=== PATIENT | female | born 1965 | race Two or more races ===

== ENCOUNTER → 2023-03-15 | Emergency (ER) | payer OTHER ==
[~2023-03-15] VITALS: Ht 160 cm; Wt 65.3 kg
== END | disposition home or self-care (01) ==
LOC: ER 17:44
DX: S81.022A Laceration with foreign body, left knee, initial encounter (principal); S81.021A Laceration with foreign body, right knee, initial encounter; Y93.I9 Activity, other involving external motion; Y92.480 Sidewalk as the place of occurrence of the external cause; S01.82XA Laceration with foreign body of other part of head, initial encounter; S52.092A Other fracture of upper end of left ulna, initial encounter for closed fracture; V00.831A Fall from motorized mobility scooter, initial encounter; S61.422A Laceration with foreign body of left hand, initial encounter; S61.421A Laceration with foreign body of right hand, initial encounter